=== PATIENT | male | born 1975 | race Caucasian/White ===

== ENCOUNTER 2019-02-09 06:16 | Inpatient (IN) | payer BC ==
[~2019-02-09] VITALS: Ht 175.3 cm; Wt 81.6 kg
[2019-02-09 06:20] VITALS: BP_SYST 133
[2019-02-09 07:55] LABS: BASOPHILS % (AUTO) 0.5 % (0.0-2.0); EOSINOPHILS % (AUTO) 0.7 % (0.0-4.0); HEMATOCRIT 45.1 % (36-54); HEMOGLOBIN 14.2 g/dL (14.0-18.0); LYMPHOCYTES # (AUTO) 1.5 K/uL (1.0-5.5); LYMPHOCYTES % (AUTO) 24.6 % (20.5-51.5); MEAN CORPUSCULAR HEMOGLOBIN 22 pg (27-31); MEAN CORPUSCULAR HGB CONC 31 % (32-36); MONOCYTES # (AUTO) 0.4 K/uL (0.0-1.0); MONOCYTES % (AUTO) 6.2 % (1.7-9.3); PLATELET COUNT (AUTO) 203 K/uL (130-430); RED BLOOD CELL COUNT(AUTO) 6.58 MIL/uL (4.2-6.2); RED CELL DISTRIBUTION WIDTH 14.7 % (9.0-15.0); WHITE BLOOD COUNT (AUTO) 5.9 K/uL (4.8-10.8)
[2019-02-09 07:58] LABS: MEAN CORPUSCULAR VOLUME 69 fL (79.0-98.0)
[2019-02-09 08:00] LABS: CALCIUM 9.3 mg/dL (8.4-11.0); CREATININE 1.3 mg/dL (0.55-1.30); POTASSIUM 3.8 mmol/L (3.5-5.1)
[2019-02-09 08:16] LABS: ALBUMIN 4.1 g/dL (3.4-4.8); THYROID STIMULATING HORMONE 3.24 uIu/mL (0.34-4.82); TOTAL BILIRUBIN 0.5 mg/dL (0.0-1.0)
[2019-02-09 08:52] LABS: PROTHROMBIN TIME 10.1 SECS (9.5-12.5)
[2019-02-09] MEDS ORDERED: ASPIRIN 81 MG TAB.CHEW PO ONE (10:15)
[2019-02-09] MEDS ORDERED: METOPROLOL SUCCINATE 25 MG TAB.SR.24H (TOPROL XL) PO ONE (11:15)
[2019-02-09 12:00] VITALS: BP_SYST 144
[2019-02-09 19:56] VITALS: BP_SYST 105
[2019-02-09 20:00] VITALS: BP_SYST 107
[2019-02-10 00:14] VITALS: BP_SYST 100
[2019-02-10 06:12] LABS: BASOPHILS # (AUTO) 0.1 K/uL (0.0-0.2); BASOPHILS % (AUTO) 0.8 % (0.0-2.0); EOSINOPHILS # (AUTO) 0.1 K/uL (0.0-0.4); HEMATOCRIT 44.3 % (36-54); HEMOGLOBIN 14.3 g/dL (14.0-18.0); LYMPHOCYTES # (AUTO) 2.8 K/uL (1.0-5.5); LYMPHOCYTES % (AUTO) 34.6 % (20.5-51.5); MEAN CORPUSCULAR HEMOGLOBIN 22 pg (27-31); MEAN CORPUSCULAR HGB CONC 32 % (32-36); MEAN CORPUSCULAR VOLUME 69 fL (79.0-98.0); MONOCYTES # (AUTO) 0.4 K/uL (0.0-1.0); MONOCYTES % (AUTO) 4.8 % (1.7-9.3); NEUTROPHILS # (AUTO) 4.8 K/uL (1.8-7.7); NEUTROPHILS % (AUTO) 58.8 % (40.0-70.0); PLATELET COUNT (AUTO) 206 K/uL (130-430); RED BLOOD CELL COUNT(AUTO) 6.43 MIL/uL (4.2-6.2)
[2019-02-10 06:19] LABS: ALBUMIN 3.7 g/dL (3.4-4.8); CALCIUM 8.9 mg/dL (8.4-11.0); CREATININE 1.23 mg/dL (0.55-1.30); POTASSIUM 4.1 mmol/L (3.5-5.1); THYROID STIMULATING HORMONE 3.06 uIu/mL (0.36-3.74)
[2019-02-10 07:00] LABS: WHITE BLOOD COUNT (AUTO) 8.2 K/uL (4.8-10.8)
[2019-02-10 08:15] VITALS: BP_SYST 100
[2019-02-10] MEDS ORDERED: ASPIRIN 81 MG TAB.CHEW PO SCH (09:00)
[2019-02-10] MEDS ORDERED: METOPROLOL SUCCINATE 25 MG TAB.SR.24H (TOPROL XL) PO SCH (09:00)
[2019-02-10 13:12] VITALS: BP_SYST 123
[2019-02-10 14:04] VITALS: BP_SYST 122
[2019-02-10] MEDS ORDERED: METO25TA3 PO (14:10)
[2019-02-10] MEDS ORDERED: ASPI-1154 PO (14:10)
== END 2019-02-10 14:25 | disposition home or self-care (01) | DRG 552 ==
LOC: SED 06:16 → STU 10:39
PROVIDERS: ADMIT Internal Medicine; ATTEND Internal Medicine
DX: M47.892 Other spondylosis, cervical region (principal); R79.89 Other specified abnormal findings of blood chemistry; E78.5 Hyperlipidemia, unspecified; F41.9 Anxiety disorder, unspecified; Z81.8 Family history of other mental and behavioral disorders
CPT/HCPCS: 36415; 70450-TC; 71045; 72050-TC; 80053; 80061; 83735-TC; 83880; 84443-TC; 84484; 85025; 85610-TC; 93005; 93306; 99285; G0378